=== PATIENT | male | born 1995 | race Caucasian/White ===

== ENCOUNTER 2018-11-20 15:45 | Observation (INO) | payer OTHER ==
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
--- NOTE | 2018-11-20 16:24 | CT ---
Head CT Technique: Multiple axial sections through the brain were obtained. Intravenous contrast was not utilized. Comparison: No prior intracranial imaging is available. Findings: Ventricles along with basal cisterns and sulci over the convexities appear within normal limits for the patient's age. No abnormal parenchymal densities are seen. No evidence of intracranial hemorrhage. No midline shift or mass effect is seen. Bone window settings were reviewed which showed the visualized paranasal sinuses to appear clear. Mastoid sinuses are also clear. No acute calvarial abnormality is appreciated. Impression: 1. Nothing acute is appreciated on noncontrast head CT exam. Diagnostic code #1
[2018-11-20] MEDS ORDERED: Acetaminophen 325 MG Tab PO ONE (16:42)
[2018-11-20] MEDS ORDERED: Ondansetron 4 MG Tab.DIS PO ONE (16:42)
[2018-11-20] MEDS ORDERED: Sodium Chloride 0.9% 1,000 ML IV ONE (17:06)
[2018-11-20] MEDS: Sodium Chloride 0.9% 1,000 ML ONE ×2 (17:09→18:00)
[2018-11-20] MEDS ORDERED: Sodium Chloride 0.9% 500 ML IV SCH (17:10)
[2018-11-20] MEDS ORDERED: Ondansetron 4 MG/2 ML SDV IVPUSH ONE (17:26)
[2018-11-20] MEDS ORDERED: Acetaminophen 325 MG Tab PO PRN (19:28)
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
--- NOTE | 2018-11-20 21:00 | US ---
Carotid ultrasound: Multiple real-time images were obtained. Plaque: No discrete plaque is seen. Comparison: No prior carotid imaging is available. Findings: Velocity measurements: Right side: CCA has a peak systolic velocity of 1.42 m/s. ICA has a peak systolic velocity of 1.39 m/s and peak end-diastolic velocity of 0.25 m/s. ECA has a peak systolic velocity of 1.3 m/s. Vertebral artery has a peak systolic velocity of 1.8 m/s. ICA/CCA ratio is 1.0. Left side: CCA has a peak systolic velocity of 1.48 m/s. ICA has a peak systolic velocity of 1.39 m/s and peak end-diastolic velocity of 0.28 m/s. ECA has a peak systolic velocity of 1.80 m/s. Vertebral artery has a peak systolic velocity of 0.83 m/s. ICA/CCA ratio is 0.9. Impression: 1. No appreciable plaque is seen. 2. Velocity measurements are increased within both common carotid arteries. Please correlate if patient is hypertensive. If patient is not hypertensive difficult to exclude a nonvisualized common carotid artery stenosis. 3. Other velocity measurements are within normal limits. Note: If patient is not hypertensive, MR angiogram angiogram study of the neck is recommended in the a.m. Diagnostic code #3
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
--- NOTE | 2018-11-22 09:42 | CR ---
Right shoulder: Three views of the right shoulder were obtained. Comparison: No previous shoulder study. Glenohumeral joint and acromioclavicular joint appear unremarkable. No fracture, dislocation or other bony abnormality is seen. Impression: 1. No abnormality is seen on right shoulder study. Diagnostic code #1
--- NOTE | 2018-11-22 09:42 | CR ---
Chest: Portable view of the chest was obtained. Comparison: No previous chest x-ray. Heart size and mediastinum are normal. Lungs are clear. Bony structures are grossly intact. Impression: 1. Nothing acute is appreciated on portable chest x-ray. Diagnostic code #1
--- NOTE | 2018-11-22 09:42 | CR ---
Cervical spine: Single lateral view of the cervical spine was obtained. Comparison: No previous cervical spine imaging. Vertebral body heights and disc spaces are maintained. Prevertebral soft tissues are normal. No subluxation or fracture is seen. Impression: 1. No abnormality is identified on lateral cervical spine exam. Diagnostic code #1
== END 2018-11-21 13:06 | disposition home or self-care (01) ==
LOC: JD.ED 15:45 → JD.MS 19:29
PROVIDERS: ADMIT Surgery; ATTEND Surgery
DX: S06.0X1A Concussion with loss of consciousness of 30 minutes or less, initial encounter (principal); I45.6 Pre-excitation syndrome; I49.9 Cardiac arrhythmia, unspecified; J45.909 Unspecified asthma, uncomplicated; V86.69XA Passenger of other special all-terrain or other off-road motor vehicle injured in nontraffic accident, initial encounter; Z88.2 Allergy status to sulfonamides
CPT/HCPCS: 36415; 70450; 71045; 72020; 73030; 80053; 80306; 80320; 81001; 83690; 84484; 85025; 93005; 93306; 93880; 96361; 96374; 99285; A9270; J2405; J7040; 93010; 99284; G0378; G0480